=== PATIENT | male | born 2000 | race Caucasian/White ===

== ENCOUNTER 2021-02-04 18:14 | Emergency (ER) | payer MEDICAID, OTHER ==
[~2021-02-04] VITALS: Ht 177.8 cm; Wt 62.0 kg
[2021-02-04 18:19] VITALS: BP 104/61
[2021-02-04] MEDS ORDERED: SULFAMETH./TRIMETHOPRIM DS 800MG/160MG TABLET PO ONE (19:00)
[2021-02-04] MEDS ORDERED: CEPHALEXIN 500 MG CAPSULE PO ONE (19:00)
[2021-02-04] MEDS ORDERED: CEPHALEXIN 500 MG CAPSULE ONE (19:05)
[2021-02-04] MEDS ORDERED: SULFAMETH./TRIMETHOPRIM DS 800MG/160MG TABLET ONE (19:05)
== END 2021-02-04 19:18 | disposition home or self-care (01) ==
LOC: ED 18:19
DX: L03.113 Cellulitis of right upper limb (principal)
CPT/HCPCS: 99283